=== PATIENT | female | born 1980 | race Two or more races ===

== ENCOUNTER 2022-07-29 06:06 | Emergency (ER) | payer BC ==
[~2022-07-29] VITALS: Ht 157.5 cm; Wt 98.7 kg
[2022-07-29 06:14] VITALS: BP 151/91
[2022-07-29] MEDS ORDERED: DexAMETHasone SOD PHOS 10MG/1ML VIAL INJ IM ONE (07:45)
[2022-07-29] MEDS ORDERED: BENZ100C19 PO ×3 (09:24→09:32)
[2022-07-29] MEDS ORDERED: ACET500T58 PO ×3 (09:24→09:32)
[2022-07-29] MEDS ORDERED: LORA10CA PO ×3 (09:24→09:32)
== END 2022-07-29 09:34 | disposition home or self-care (01) ==
LOC: ER 06:06
DX: J06.9 Acute upper respiratory infection, unspecified (principal); B97.89 Other viral agents as the cause of diseases classified elsewhere; Z20.822 Contact with and (suspected) exposure to COVID-19
CPT/HCPCS: 36415; 71045; 87426; 87804; 96372; 99284; J1100

== ENCOUNTER 2022-11-11 13:27 | Emergency (ER) | payer BC, MEDICAID ==
[~2022-11-11] VITALS: Ht 157.5 cm; Wt 79.9 kg
[~2022-11-11 13:27] MED LIST: ACET500T58 PO; BENZ100C19 PO; LORA10CA PO
[2022-11-11 15:23] VITALS: BP 131/81; PULSE 79; RESP 20; TEMP 96.8; O2SAT 100
== END 2022-11-11 16:04 | disposition left against medical advice (07) ==
LOC: ER 13:27
DX: G43.909 Migraine, unspecified, not intractable, without status migrainosus (principal); Z53.21 Procedure and treatment not carried out due to patient leaving prior to being seen by health care provider